=== PATIENT | female | born 2000 | race African-American/Black ===

== ENCOUNTER 2021-12-01 11:42 | Emergency (ER) | payer OTHER ==
[~2021-12-01] VITALS: Ht 162.6 cm; Wt 78.0 kg
[2021-12-01] MEDS ORDERED: ALBUTEROL (0.083%) 2.5MG/3ML NEB HHN STA (14:21)
[2021-12-01] MEDS ORDERED: IPRATROPIUM BROMIDE (0.02%) 0.5MG/2.5ML NEB HHN STA (14:21)
[2021-12-01] MEDS ORDERED: METHYLPREDNISOLONE SOD SUCC 125 MG/2 ML VIAL IM STA (14:21)
[2021-12-01] MEDS ORDERED: P50 PO (15:27)
[2021-12-01] MEDS ORDERED: ALBU18HF2 INFIL (15:27)
[2021-12-01 16:26] VITALS: BP 132/65
== END 2021-12-01 16:25 | disposition home or self-care (01) ==
LOC: ER 11:42
DX: J45.909 Unspecified asthma, uncomplicated (principal)
CPT/HCPCS: 94640; 99283; Z7610

== ENCOUNTER 2022-06-08 22:40 | Emergency (ER) | payer OTHER ==
[~2022-06-08] VITALS: Ht 165.1 cm; Wt 65.0 kg
[~2022-06-08 22:40] MED LIST: ALBU18HF2 INFIL; P50 PO
[2022-06-09 00:30] VITALS: BP 121/81
[2022-06-09] MEDS ORDERED: BENZ100C86 MT (02:39)
== END 2022-06-09 02:46 | disposition home or self-care (01) ==
LOC: ER 22:40
DX: U07.1 COVID-19 (principal)
CPT/HCPCS: 99281